=== PATIENT | male | born 1960 | race Caucasian/White ===

== ENCOUNTER → 2022-02-11 | Outpatient (CLI) | payer BC ==
--- NOTE | 2022-02-11 19:07 | XR ---
EXAMINATION TYPE: XR lumbosacral spine min 4V DATE OF EXAM: 02/11/2022 4:20 PM INDICATION: Patient age:Male; 62 years old; Reason for study: M54.40. COMPARISON: None TECHNIQUE: Frontal, lateral , bilateral oblique and coned in L5-S1 lateral views of the spine. FINDINGS: No evidence of loss of vertebral body height is seen. There is grade 2 anterolisthesis of L 5 on S1 with bilateral spondylolysis.. No significant degeneration changes throughout the spine. IMPRESSION: 1. Mild multilevel disc degeneration. 2. Grade 2 anterolisthesis of L5 on S1 with spondylolysis.
== END | disposition home or self-care (01) ==
LOC: RADXRMAIN 16:03
PROVIDERS: ATTEND Family Medicine
DX: M54.40 Lumbago with sciatica, unspecified side (principal)
CPT/HCPCS: 72110

== ENCOUNTER → 2022-03-04 | Outpatient (CLI) | payer BC ==
--- NOTE | 2022-03-04 15:36 | US ---
EXAMINATION TYPE: US mass soft tissue chest/back DATE OF EXAM: 03/04/2022 COMPARISON: NONE CLINICAL HISTORY: M79.9 SOFT TISSUE DISORDER. Patient has felt palpable area right lower back since A ugust. Scanned right lower back at patient's palpable area of concern. Very indistinct heterogeneous, hypoec hoic area seen at area of concern: 1.7 x 1.5 x 0.8 cm. Body marker on images to show area scanned. Differential diagnosis could include lipoma and liposarcoma. IMPRESSION: 1. Vague slightly hypoechoic area may be present in the palpable region appears to be over the right superior buttocks region. Consider additional workup with contrast MRI.
== END | disposition home or self-care (01) ==
LOC: RADUSWWP 14:53
PROVIDERS: ATTEND Family Medicine
DX: M79.9 Soft tissue disorder, unspecified (principal)

== ENCOUNTER → 2022-03-05 | Outpatient (CLI) | payer BC ==
--- NOTE | 2022-03-05 22:11 | MR ---
EXAMINATION TYPE: MR lumbar spine wo con DATE OF EXAM: 03/05/2022 8:32 PM COMPARISON: Was done. CLINICAL INDICATION:Male, 62 years old with history of M51.36; TECHNIQUE: Multi planar, multi sequence imaging was performed utilizing: T1-weighted, T2-weighted, a nd turbo inversion recovery imaging of the lumbar spine. IV Contrast: None. FINDINGS: Alignment: The lumbar vertebral bodies have preserved heights. There is grade 2 anterolisthesis of L5 on S1 with bony edema on L5 and S1. There is bilateral spondylolysis. Cord: The conus medullaris and the distal spinal cord appear unremarkable with regards to their signa l intensity and morphology. Bones/Discs: Increased inversion recovery signal within L5 and S1. Multilevel degenerative disc disea se is noted and most pronounced at the L5-S1. Multilevel disc desiccation is present. L1-L2: No evidence of significant spinal canal stenosis or neural foraminal stenosis. L2-L3: No evidence of significant spinal canal stenosis or neural foraminal stenosis. L3-L4: No evidence of significant spinal canal stenosis or neural foraminal stenosis. L4-L5: No evidence of significant spinal canal stenosis or neural foraminal stenosis. L5-S1: Disc uncovering from Grade 2 spondylolisthesis of L5 on S1 with spondylolysis. This results in moderate to severe bilateral neural foraminal stenosis. Spinal canal is patent at this level. Other findings: None. IMPRESSION: Grade 2 spondylolisthesis of L5 on S1 with spondylolysis. This results in moderate to severe bilatera l neural foraminal stenosis. Spinal canal is patent at this level.
== END | disposition home or self-care (01) ==
LOC: RADMRIMAIN 20:00
PROVIDERS: ATTEND Family Medicine
DX: M43.17 Spondylolisthesis, lumbosacral region (principal); M48.061 Spinal stenosis, lumbar region without neurogenic claudication; M51.36 Other intervertebral disc degeneration, lumbar region; M99.73 Connective tissue and disc stenosis of intervertebral foramina of lumbar region
CPT/HCPCS: 72148

== ENCOUNTER 2022-12-07 19:51 | Emergency (ER) | payer BC ==
[2022-12-07 20:01] VITALS: RESP 18; TEMP 97.7
[2022-12-07] MEDS ORDERED: SODIUM CHLORIDE 0.9% 1,000 ML IV STA (20:15)
[2022-12-07 20:29] LABS: Basophils % (A) 0 %; Eosinophils # (A) 0.2 k/uL (0-0.7); Eosinophils % (A) 2 %; HGB 15.1 gm/dL (13.0-17.5); Lymphocytes # (A) 2.6 k/uL (1.0-4.8); Lymphocytes % (A) 32 %; MCH 31.7 pg (25.0-35.0); MCV 90.6 fL (80.0-100.0); Mean Platelet Volume 8.4; Monocytes # (A) 0.6 k/uL (0-1.0); Monocytes % (A) 7 %; Neutrophils # (A) 4.6 k/uL (1.3-7.7); Neutrophils % (A) 55 %; Platelet Count 204 k/uL (150-450); RBC 4.75 m/uL (4.30-5.90); RDW 12.6 % (11.5-15.5); WBC 8.3 k/uL (3.8-10.6)
[2022-12-07 20:31] LABS: ALT 34 U/L (4-49); AST 38 U/L (17-59); African American GFR (CKD) >90 (>60 ml/min/1.73 sqM); Albumin 4.5 g/dL (3.5-5.0); Alkaline Phosphatase 67 U/L (38-126); Anion Gap 12 mmol/L; Blood Urea Nitrogen 19 mg/dL (9-20); Calcium 8.9 mg/dL (8.4-10.2); Carbon Dioxide 22 mmol/L (22-30); Chloride 107 mmol/L (98-107); Glucose 121 mg/dL (74-99); Magnesium 2.3 mg/dL (1.6-2.3); Non-African American GFR(CKD) 82 (>60 ml/min/1.73 sqM); Potassium 3.8 mmol/L (3.5-5.1); Sodium 141 mmol/L (137-145); Total Bilirubin 0.5 mg/dL (0.2-1.3); Total Protein 7.7 g/dL (6.3-8.2)
[2022-12-07 20:45] LABS: INR 0.9 (<1.2); Prothrombin Time 9.8 sec (9.0-12.0)
--- NOTE | 2022-12-07 20:47 | XR ---
EXAMINATION TYPE: XR chest 2V DATE OF EXAM: 12/07/2022 8:25 PM COMPARISON: None TECHNIQUE: XR chest 2V Frontal and lateral views of the chest. CLINICAL INDICATION:Male, 62 years old with history of syncope; FINDINGS: Lungs/Pleura: There is no evidence of pleural effusion, focal consolidation, or pneumothorax. Pulmonary vascularity: Unremarkable. Heart/mediastinum: Cardiomediastinal silhouette is unremarkable. Musculoskeletal: No acute osseous pathology. IMPRESSION: No acute cardiopulmonary disease/process.
[2022-12-07 20:48] LABS: Partial Thromboplastin Time 17.9 sec (22.0-30.0)
--- NOTE | 2022-12-07 21:00 | ED ---
Syncope HPI - General Chief Complaint: Syncope Stated Complaint: SYNCOPE Time Seen by Provider: 12/07/22 20:09 Source: patient, family, RN notes reviewed Mode of arrival: EMS Limitations: no limitations - History of Present Illness Initial Comments: This is a 62-year-old male who presents to the emergency department for a syncopal episode. Patient was at a restaurant, when he started to feel somewhat dizzy and his states that he looked clammy. He proceeded to lose consciousness for approximately 1 minute. He did not hit his head or sustain an y injuries during the event, as his head was set down on the table and he was lowered to the ground. He did have minor confusion for about a minute afterwards. Patient states that he currently feels fine. He did not experience any chest pain or shortness of breath. Denies any headaches. He does state that he did not eat breakfast this morning and he was out on a boat in the heat all day as well. Denies any fevers, chills, sore throat, cough, dyspnea, chest pain, palpitations, abdominal pain, nausea, vomiting, diarrhea, back pain, or headaches. MD Complaint: loss of consciousness Review of Systems ROS Statement: Those systems with pertinent positive or pertinent negative responses have been documented in the HPI. ROS Other: All systems not noted in ROS Statement are negative. General Exam Limitations: no limitations General appearance: alert, in no apparent distress Head exam: Present: atraumatic, normocephalic, normal inspection Eye exam: Present: normal appearance, PERRL, EOMI. Absent: scleral icterus, conjunctival injection, periorbital swelling Respiratory exam: Present: normal lung sounds bilaterally. Absent: respiratory distress, wheezes, rales, rhonchi, stridor Cardiovascular Exam: Present: regular rate, normal rhythm, normal heart sounds. Absent: systolic murmur, diastolic murmur, rubs, gallop, clicks Neurological exam: Present: alert, oriented X3, CN II-XII intact Psychiatric exam: Present: normal affect, normal mood Skin exam: Present: warm, dry, intact, normal color. Absent: rash Course Vital Signs 12/07/22 12/07/22 19:56 22:18 Temperature 97.7 F Pulse Rate 76 78 Respiratory 18 18 Rate Blood Pressure 106/71 138/91 O2 Sat by Pulse 97 98 Oximetry Medical Decision Making - Medical Decision Making This is a 62-year-old male who presents to the emergency department for a syncop al episode. Was pt. sent in by a medical professional or institution? @ -No Did you speak to anyone other than the patient for history? @ -His provided the majority of the information, with the patient saying that he currently felt fine and that he felt a little dizzy beforehand. Did you review nursing and triage notes? @ -Yes, and I agree, it is accurate with regards to the patient's symptoms. Were old charts reviewed? @ -No Differential Diagnosis? @ -Differential Syncope: Valvular disease, hypertrophic cardiomyopathy, pulmonary embolism, tamponade, tachycardia, bradycardia, [place], hypovolemia, hemorrhage, dissection, anemia, intracranial hemorrhage, seizure, hypoglycemia, carbon monoxide poisoning, this is not meant to be an all-inclusive list. EKG interpreted by me (3pts min.)? @ -EKG interpreted by me demonstrating the following: Sinus rhythm. Ve ntricular rate 71 beats per minute, LA interval 185 ms, QRS duration 94 ms, QTC 405 ms. X-rays interpreted by me (1pt min.)? @ -Chest x-ray obtained, my interpretation identifies no localized consolidations or infiltrates. CT interpreted by me (1pt min.)? @ -Not obtained U/S interpreted by me (1pt. min.)? @ -Not obtained What testing was considered but not performed? (CT, X-rays, U/S, labs)? Why? @ -None What meds were considered but not given? Why? @ -None Did you discuss the management of the patient with other professionals? @ -No Did you reconcile home meds? @ -No Was smoking cessation discussed for >3mins.? @ -No Was critical care preformed (if so, how long)? @ -No Were there social determinants of health that impacted care today? How? (Homelessness, low income, unemployed, alcoholism, drug addiction, transportation, low edu. Level, literacy, decrease access to med. care, [facility], rehab)? @ -No Was there de-escalation of care discussed even if they declined? (Discuss DNR or withdrawal of care, Hospice)? @ -No What co-morbidities impacted this encounter? (DM, HTN, Smoking, COPD, CAD, Cancer, CVA, Hep., AIDS, mental health diagnosis, sleep apnea, morbid obesity)? @ -None Was patient admitted / discharged? @ -Discharged. Lab work obtained and found to be nonactionable. Chest x-ray reveals no acute process. He was given a liter bolus of IV fluids. He continued to remain asymptomatic in the emergency department. Orthostatics obtained and found to be negative, see below for actual values. Discussed that the cause of the syncope is not entirely clear. This may have been a vasovagal event or related to dehydration. He was advised to have close follow-up with his primary care provider for reevaluation. Overall patient felt stable for discharge home, and he was subsequently discharged home in stable condition. Orthostatics Lying: HR 64 BPM, BP 130/76 Sitting: HR 71 BPM, BP 129/88 Standing: HR 74 BPM, BP 138/91 Undiagnosed new problem with uncertain prognosis? @ -None Drug Therapy requiring intensive monitoring for toxicity (Heparin, Nitro, Insulin, Cardizem)? @ -None Were any procedures done? @ -None Diagnosis/symptom? @ -Syncope Acute, or Chronic, or Acute on Chronic? @ -Acute Uncomplicated (without systemic symptoms) or Complicated (systemic symptoms)? @ -Uncomplicated Side effects of treatment? @ -None Exacerbation, Progression, or Severe Exacerbation] @ -Not applicable Poses a threat to life or bodily function? @ -Unclear Return precautions reviewed in depth, the patient is instructed to return to the emergency department with any new, worsening, or concerning symptoms. Patient verbalized understanding. This case was discussed in detail with the attending ED physician, Dr. Jackson. Presentation, findings, and treatment plan discussed in detail as well. - Lab Data Result diagrams: 12/07/22 20:02 12/07/22 20:02 Lab Results 12/07/22 12/07/22 12/07/22 Range/Units 20:02 20:02 20:02 WBC 8.3 (3.8-10.6) k/uL RBC 4.75 (4.30-5.90) m/uL Hgb 15.1 (13.0-17.5) gm/dL Hct 43.0 (39.0-53.0) % MCV 90.6 (80.0-100.0) fL MCH 31.7 (25.0-35.0) pg MCHC 35.0 (31.0-37.0) g/dL RDW 12.6 (11.5-15.5) % Plt Count 204 (150-450) k/uL MPV 8.4 Neutrophils % 55 % Lymphocytes % 32 % Monocytes % 7 % Eosinophils % 2 % Basophils % 0 % Neutrophils # 4.6 (1.3-7.7) k/uL Lymphocytes # 2.6 (1.0-4.8) k/uL Monocytes # 0.6 (0-1.0) k/uL Eosinophils # 0.2 (0-0.7) k/uL Basophils # 0.0 (0-0.2) k/uL PT 9.8 (9.0-12.0) sec INR 0.9 (<1.2) APTT 17.9 L (22.0-30.0) sec D-Dimer 0.28 (<0.60) mg/L FEU Sodium 141 (137-145) mmol/L Potassium 3.8 (3.5-5.1) mmol/L Chloride 107 (98-107) mmol/L Carbon Dioxide 22 (22-30) mmol/L Anion Gap 12 mmol/L BUN 19 (9-20) mg/dL Creatinine 0.99 (0.66-1.25) mg/dL Est GFR (CKD-EPI)AfAm >90 (>60 ml/min/1.73 sqM) Est GFR (CKD-EPI)NonAf 82 (>60 ml/min/1.73 sqM) Glucose 121 H (74-99) mg/dL Calcium 8.9 (8.4-10.2) mg/dL Magnesium 2.3 (1.6-2.3) mg/dL Total Bilirubin 0.5 (0.2-1.3) mg/dL AST 38 (17-59) U/L ALT 34 (4-49) U/L Alkaline Phosphatase 67 (38-126) U/L Troponin I (0.000-0.034) ng/mL Total Protein 7.7 (6.3-8.2) g/dL Albumin 4.5 (3.5-5.0) g/dL 12/07/22 Range/Units 20:02 WBC (3.8-10.6) k/uL RBC (4.30-5.90) m/uL Hgb (13.0-17.5) gm/dL Hct (39.0-53.0) % MCV (80.0-100.0) fL MCH (25.0-35.0) pg MCHC (31.0-37.0) g/dL RDW (11.5-15.5) % Plt Count (150-450) k/uL MPV Neutrophils % % Lymphocytes % % Monocytes % % Eosinophils % % Basophils % % Neutrophils # (1.3-7.7) k/uL Lymphocytes # (1.0-4.8) k/uL Monocytes # (0-1.0) k/uL Eosinophils # (0-0.7) k/uL Basophils # (0-0.2) k/uL PT (9.0-12.0) sec INR (<1.2) APTT (22.0-30.0) sec D-Dimer (<0.60) mg/L FEU Sodium (137-145) mmol/L Potassium (3.5-5.1) mmol/L Chloride (98-107) mmol/L Carbon Dioxide (22-30) mmol/L Anion Gap mmol/L BUN (9-20) mg/dL Creatinine (0.66-1.25) mg/dL Est GFR (CKD-EPI)AfAm (>60 ml/min/1.73 sqM) Est GFR (CKD-EPI)NonAf (>60 ml/min/1.73 sqM) Glucose (74-99) mg/dL Calcium (8.4-10.2) mg/dL Magnesium (1.6-2.3) mg/dL Total Bilirubin (0.2-1.3) mg/dL AST (17-59) U/L ALT (4-49) U/L Alkaline Phosphatase (38-126) U/L Troponin I <0.012 (0.000-0.034) ng/mL Total Protein (6.3-8.2) g/dL Albumin (3.5-5.0) g/dL - Radiology Data Radiology results: report reviewed, image reviewed Disposition Clinical Impression: Syncope Disposition: HOME SELF-CARE Instructions (If sedation given, give patient instructions): Syncope (ED) Additional Instructions: Return to the emergency department with any new, worsening, or concerning symptoms. Follow up with your primary care provider in 1-2 days. Is patient prescribed a controlled substance at d/c from ED?: No Referrals: Apollo Valenzuela MD [Primary Care Provider] - 1-2 days
[2022-12-07 22:20] VITALS: BP 138/91; PULSE 78
== END 2022-12-07 22:20 | disposition home or self-care (01) ==
LOC: EC 19:51
DX: R55 Syncope and collapse (principal)
CPT/HCPCS: 36415; 71046; 80053; 83735; 84484; 85025; 85379; 85610; 85730; 93005; 96360; 99284

== ENCOUNTER → 2023-04-23 | Outpatient (CLI) | payer BC ==
--- NOTE | 2023-04-23 11:44 | MR ---
EXAMINATION TYPE: MR brain wo/w con DATE OF EXAM: 04/23/2023 COMPARISON: None HISTORY: Weakness RUE with dyscoordination TECHNIQUE: Multiplanar, multisequence images of the brain and brainstem is performed without and with IV contras t, utilizing 12 mL intravenous Gadavist . FINDINGS: Diffusion weighted images demonstrate no evidence of a recent infarct or other diffusion ab normality. Mild generalized degenerative change. Nonspecific areas of abnormal signal are seen in the white matter of bilateral parietal. Midline structures demonstrate normal morphology. The craniocervical junction appears within normal limits. Post contrast images demonstrate no abnormal enhancement. The dural venous sinuses appear pa tent. Changes of chronic sinusitis. Orbits are symmetric. IMPRESSION: 1. Mild degenerative change. 2. Nonspecific focal areas of abnormal signal in the white matter. Differential diagnosis would inclu de remote microvascular ischemia or demyelinating process including MS. No enhancing lesions.
== END | disposition home or self-care (01) ==
LOC: RADMRIMAIN 10:10
PROVIDERS: ATTEND Psychiatry & Neurology Neurology
DX: G31.9 Degenerative disease of nervous system, unspecified (principal); G37.9 Demyelinating disease of central nervous system, unspecified; G93.89 Other specified disorders of brain; R93.89 Abnormal findings on diagnostic imaging of other specified body structures
CPT/HCPCS: 70553; A9585

== ENCOUNTER → 2023-06-15 | Outpatient (CLI) | payer BC ==
--- NOTE | 2023-07-01 12:12 | MR ---
Clinical Information: Right brachial plexus; G 56.21 lesion of the ulnar nerve Technique: Multiplanar, multisequence MR imaging of the right brachial plexus is performed first wit hout IV contrast and then T1 fat sat sequences with 30 mL Gadavist Imaging of the [right] brachial plexus was performed according to brachial plexus protocol which incl udes multiplanar anatomic and 3-D Nerve VIEW sequences. Sequences were performed first without IV co ntrast and then T1 fat sat sequences with 30 mL Gadavist Findings: Study quality is limited due to patient motion. Even After repeated attempts Comparison: None. Spinal cord: The cord has a normal volume and signal, with the exception of the cord is not well seen at the C6-C7 level, possibly motion artifact. Brachial plexus: Roots: normal Trunks: normal Divisions: normal Cords: normal Branches: normal Muscles: The scalene muscles have a normal appearance. The limited included rotator cuff muscles and chest wal l are normal. Bones: C5-6 and C6-7 levels demonstrate moderate degenerative disc disease with moderate endplate osteophyte s forming disc osteophyte complexes which touch the antral cord without significant indentation. The vertebral bodies and discs are otherwise of normal height with no malalignment. The neural exit fora james are widely patent, but might be better assessed on cervical spine MRI. No cervical rib or other vertebral anomaly is identified. Thoracic Outlet: The scalene triangle is normal, as is the costoclavicular space and pectoralis minor. No fibrous band or mass lesion is identified. Vascular structures: No evidence of vascular compression or other vascular abnormality is seen. Conclusion: Normal MRI brachial plexus, but the exam is limited by motion artifact. At least moderate C5-C6 and C6-C7 degenerative disc and endplate osteophytes. This might be further i nvestigated with MRI cervical spine noncontrast
== END | disposition home or self-care (01) ==
LOC: RADMRIMAIN 07:19
PROVIDERS: ATTEND Psychiatry & Neurology Neurology
DX: M50.322 Other cervical disc degeneration at C5-C6 level (principal); M25.78 Osteophyte, vertebrae; G56.21 Lesion of ulnar nerve, right upper limb
CPT/HCPCS: 71552; A9585

== ENCOUNTER → 2023-11-30 | Outpatient (CLI) | payer BC ==
--- NOTE | 2023-11-30 12:46 | MR ---
EXAMINATION TYPE: MR brain/cspine wo/w DATE OF EXAM: 11/30/2023 9:42 AM CLINICAL INDICATION: Male, 63 years old with history of R94.02 ABN BRAIN SCAN M48.02 SPINAL STENOSIS, CERV; PHH, COMPARISON: 04/23/2023. TECHNIQUE: Multi planar, multi sequence imaging was performed through the brain including: T1, T2, Inversion rec overy, Diffusion weighted imaging, and gradient echo imaging. No gadolinium was given. Multi planar, multi sequence imaging was performed utilizing: T1-weighted, T2-weighted, and turbo inv ersion recovery imaging of the cervical spine. IV Contrast: 9 cc Gadavist. FINDINGS: The emmanuel-white junctions, ventricular system, basal cisterns appear unremarkable. White matter change s are similar to prior with right right posterior centrum semiovale and left frontal lobe slightly or thogonal to the lateral ventricles and sagittal and FLAIR imaging. . Midline structures show no abnor mality. Diffusion-weighted imaging shows no evidence of restricted diffusion. The susceptibility weig hted images do not reveal any evidence for micro-hemorrhage. The bone marrow signal is within normal limits. Paranasal sinuses and mastoid air cells: Mild scattered paranasal sinus disease. Visualized orbits: Orbital contents are intact. Alignment: The cervical vertebral bodies have preserved heights. Alignment is within normal limits gi zeb patient positioning. Bones: Scattered Modic endplate changes with osteophytes and disc space narrowing. Multilevel degener ative disc disease is noted and most pronounced at the C5-C7 vertebral levels. Cord: The spinal cord is unremarkable with regards to their signal intensity and morphology. Discs: Multilevel disc desiccation is present. C2-C3: No significant disc pathology. The spinal canal is patent. No neural foraminal stenosis. C3-C4: A disc osteophyte complex is present which minimally narrows the ventral subarachnoid space. Bilateral facet and uncovertebral joint arthropathy are present with mild to moderate bilateral neur al foraminal stenosis. C4-C5: No significant disc pathology. The spinal canal is patent. Bilateral facet and uncovertebral joint arthropathy are present with mild bilateral neural foraminal stenosis. C5-C6: No significant disc pathology. The spinal canal is patent. Bilateral facet and uncovertebral joint arthropathy are present with moderate bilateral neural foraminal stenosis. C6-C7: A disc osteophyte complex is present which minimally narrows the ventral subarachnoid space. Bilateral facet and uncovertebral joint arthropathy are present with moderate left and mild right ne ural foraminal stenosis. C7-T1: No significant disc pathology. The spinal canal is patent. No neural foraminal stenosis. Other: None. IMPRESSION: 1. No evidence for active demyelination. Few scattered white matter changes one of which in the post erior right frontal lobe is somewhat orthogonal to the lateral ventricle. Correlate for demyelination . 2. No evidence for acute/subacute ischemia. 3. No abnormal postcontrast enhancement. 4. No evidence for disc herniation or significant spinal canal stenosis. 5. Multilevel disc degeneration with associated osteoarthritic changes. 6. Spinal cord signal is maintained.
== END | disposition home or self-care (01) ==
LOC: RADMRIMAIN 08:26
PROVIDERS: ATTEND Psychiatry & Neurology Neurology
DX: M48.02 Spinal stenosis, cervical region (principal); M50.323 Other cervical disc degeneration at C6-C7 level; M47.812 Spondylosis without myelopathy or radiculopathy, cervical region; M99.71 Connective tissue and disc stenosis of intervertebral foramina of cervical region; R94.02 Abnormal brain scan
CPT/HCPCS: 70553; 72156